=== PATIENT | male | born 1975 | race Caucasian/White ===

== ENCOUNTER 2016-10-30 22:55 | Emergency (ER) | payer OTHER ==
[2016-10-30] MEDS ORDERED: Sodium Chloride 0.9% 1000 ML 1,000 ML IV STA (23:31)
[2016-10-30] MEDS ORDERED: Sodium Chloride 0.9% 1000 ML 1,000 ML ONE (23:35)
--- NOTE | 2016-10-30 23:55 | ERPHSYRPT ---
- History of Present Illness Time Seen by Provider: 10/30/16 23:25 Historian: patient Patient Subjective Stated Complaint: pt states he has been having lower back pain x2 weeks and dark urine. states he thinks he has been dehydrated or may have kidney infection Triage Nursing Assessment: pt alert and oriented, asnwers questions approp. pt ambulatory with steady gait noted. respirations nonlabored with lungs cta. pt jaundiced, eyes and skin yellow. urine dark. abd soft, tender in epigastric area. bowel sounds present. Physician History: PATIENT COMPLAINS OF BILATERAL LOWER BACK PAIN FOR 2WEEKS, ASSOCIATED WITH EMESIS X 3 AFTER MEALS, AND RIGHT UPPER AND ABDOMINAL OVER THE PAST SEVERAL DAYS. STATES HE HAS BECAME JAUNDICE OVER PAST 3 DAYS. DENIES DIARRHEA OR FEVER Timing/Duration: week(s) Activities at Onset: none Quality: throbbing Severity of Pain-Max: moderate Severity of Pain-Current: moderate Previous symptoms: no prior history Allergies/Adverse Reactions: No Known Drug Allergies Allergy (Verified 10/30/16 23:32) Home Medications: No Home Meds 1 [facility] UD 10/30/16 [History] Hx Tetanus, Diphtheria Vaccination/Date Given: Yes Hx Influenza Vaccination/Date Given: No Hx Pneumococcal Vaccination/Date Given: No Immunizations Up to Date: Yes - Review of Systems Constitutional: Weakness, No Fever, No Chills Eyes: No Symptoms Ears, Nose, & Throat: No Symptoms Respiratory: No Cough, No Dyspnea Cardiac: No Chest Pain, No Edema, No Syncope Abdominal/Gastrointestinal: No Abdominal Pain, No Nausea, No Vomiting, No Diarrhea Genitourinary Symptoms: No Dysuria Musculoskeletal: No Back Pain, No Neck Pain Skin: No Rash Neurological: No Symptoms, No Dizziness, No Focal Weakness, No Sensory Changes Psychological: No Symptoms Endocrine: No Symptoms All Other Systems: Reviewed and Negative - Past Medical History Pertinent Past Medical History: Yes Other Medical History: hx of fx sternum - Past Surgical History Past Surgical History: Yes Other Surgical History: lt wrsit surgery - Social History Smoking Status: Former smoker Exposure to second hand smoke: Yes Drug Use: none Patient Lives Alone: No - Nursing Vital Signs Nursing Vital Signs: Initial Vital Signs Temperature 97.9 F 10/30/16 23:07 Pulse Rate 80 10/30/16 23:07 Respiratory Rate 20 10/30/16 23:07 Blood Pressure 142/89 10/30/16 23:07 O2 Sat by Pulse Oximetry 99 10/30/16 23:07 Pain Scale Pain Intensity [] 3 Pain Intensity 4 - Physical Exam General Appearance: no apparent distress, alert Eye Exam: PERRL/EOMI, eyes nml inspection, scleral icterus Ears, Nose, Throat Exam: normal ENT inspection, pharynx normal, moist mucous membranes Neck Exam: normal inspection, non-tender, supple, full range of motion Respiratory Exam: normal breath sounds, lungs clear, No respiratory distress Cardiovascular Exam: regular rate/rhythm, normal heart sounds Gastrointestinal/Abdomen Exam: soft, normal bowel sounds, tenderness ( EPIGASTRIC AND RIGHT AND RIGHT UPPER QUAD), No mass Back Exam: normal inspection, normal range of motion, No CVA tenderness, No vertebral tenderness Extremity Exam: normal inspection, normal range of motion, pelvis stable Neurologic Exam: alert, oriented x 3, cooperative, normal mood/affect, nml cerebellar function, sensation nml, No motor deficits Skin Exam: normal color, warm, dry SpO2: 99 Oxygen Delivery: Room Air - CT Exams Abdomen/Pelvis CT Interpretation: Tele-radiologist Report (THERE IS A RIM OF LOW DENSITY MEASURING 7MM, IN THICKNESS SURROUNDING THE ENHANCING MUCOSA OF THE SOMEWHAT CONTRACTED GALLBLADDER. THE COMMON HEPATIC DUCT MEASURE UP TO 6MM IN DIAMETER, THERE IS A 4MM NONOBSTRUCTING STONE IN THE LOWER POLE OF LFT KIDNEY) Ordered Tests: Active Orders 24 hr Category Date Time Status IV Insertion STAT Care 10/30/16 23:31 Active ABDOMEN AND PELVIS W CONTRAST [CT] Stat Exams 10/30/16 23:32 Taken AMYLASE Stat Lab 10/30/16 23:54 Completed CBC W DIFF Stat Lab 10/30/16 23:54 Completed CMP Stat Lab 10/30/16 23:54 Completed CULTURE,URINE Stat Lab 10/30/16 23:55 Received LIPASE Stat Lab 10/30/16 23:54 Completed PROTIME WITH INR Stat Lab 10/30/16 23:54 Completed UA W/ MICROSCOPIC Stat Lab 10/30/16 23:55 Completed Urine Triage Profile Stat Lab 10/30/16 23:55 Completed Medication Summary Generic Name Dose Route Start Last Admin Trade Name Freq PRN Reason Stop Dose Admin Sodium Chloride 1,000 mls @ 100 mls/hr 10/31/16 02:45 Sodium Chloride 0.9% 1000 Ml IV 11/30/16 02:44 .Q10H CORNELIO Discontinued Medications Generic Name Dose Route Start Last Admin Trade Name Mac PRN Reason Stop Dose Admin Fentanyl Citrate 100 mcg 10/31/16 02:33 10/31/16 02:37 Sublimaze 100 Mcg/2 Ml IV 10/31/16 02:34 100 mcg STAT ONE Administration Fentanyl Citrate Confirm 10/31/16 02:36 Sublimaze 100 Mcg/2 Ml Administered 10/31/16 02:37 Dose 100 mcg .ROUTE .STK-MED ONE Sodium Chloride Confirm 10/30/16 23:35 Sodium Chloride 0.9% 1000 Ml Administered 10/30/16 23:36 Dose 1,000 mls @ ud .ROUTE .STK-MED ONE Sodium Chloride 1,000 mls @ 999 mls/hr 10/30/16 23:31 10/31/16 00:00 Sodium Chloride 0.9% 1000 Ml IV 10/31/16 00:31 999 mls/hr .Q1H1M STA Administration Sodium Chloride Confirm 10/31/16 02:25 Sodium Chloride 0.9% 1000 Ml Administered 10/31/16 02:26 Dose 1,000 mls @ ud .ROUTE .STK-MED ONE Lactulose 20 g 10/31/16 02:35 Enulose 10 Gm/15 Ml PO 10/31/16 02:36 STAT ONE Lactulose Confirm 10/31/16 02:48 Lactulose 20 Gm/30ml Ud Cup Administered 10/31/16 02:49 Dose 20 gm .ROUTE .STK-MED ONE Ondansetron HCl 4 mg 10/31/16 02:33 10/31/16 02:37 Zofran 4 Mg/2 Ml Vial IV 10/31/16 02:34 4 mg STAT ONE Administration Ondansetron HCl Confirm 10/31/16 02:35 Zofran 4 Mg/2 Ml Vial Administered 10/31/16 02:36 Dose 4 mg .ROUTE .STK-MED ONE Ondansetron HCl 4 mg 10/31/16 02:38 Zofran 4 Mg/2 Ml Vial IV 10/31/16 02:39 STAT ONE Lab/Rad Data: Laboratory Result Diagrams 10/30/16 23:54 10/30/16 23:54 Laboratory Results 10/30/16 10/30/16 10/30/16 Range/Units 23:55 23:55 23:54 WBC (4.0-10.5) K/mm3 RBC (4.1-5.6) M/mm3 Hgb (12.5-18.0) gm/dl Hct (42-50) % MCV (78-100) fl MCH (26-32) pg MCHC (32-36) g/dl RDW (11.5-14.0) % Plt Count (150-450) K/mm3 MPV (6-9.5) fl Gran % (36.0-66.0) % Lymphocytes % (24.0-44.0) % Monocytes % (0.0-12.0) % Eosinophils % (0.00-5.0) % Basophils % (0.0-0.4) % Basophils # (0-0.4) INR (0.8-3.0) Sodium (136-145) mEq/L Potassium (3.5-5.1) mEq/L Chloride (98-107) mEq/L Carbon Dioxide (21-32) mEq/L Anion Gap (5-15) MEQ/L BUN (9-20) mg/dL Creatinine (0.55-1.30) mg/dl Estimated GFR ML/MIN Glucose (70-110) MG/DL Calcium (8.5-10.1) mg/dL Total Bilirubin (0.2-1.0) mg/dL AST (15-37) U/L ALT (12-78) U/L Alkaline Phosphatase (46-116) U/L Ammonia 32 (11-32) MMOL/l Serum Total Protein (6.4-8.2) gm/dL Albumin (3.4-5.0) g/dL Amylase (25-115) U/L Lipase (73-393) U/L Ur Collection Type VOID Urine Color DARK YELLOW (YELLOW) Urine Appearance SLIGHTLY CLOUDY (CLEAR) Urine pH 7.0 (5-6) Ur Specific Darling 1.025 (1.005-1.025) Urine Protein TRACE (Negative) Urine Ketones NEGATIVE (NEGATIVE) Urine Blood 50 (0-5) Hammad/ul Urine Nitrite NEGATIVE (NEGATIVE) Urine Bilirubin LARGE (NEGATIVE) Urine Urobilinogen 4 (0-1) mg/dL Ur Leukocyte Esterase NEGATIVE (NEGATIVE) Urine Microscopic RBC 2-5 (0-2) /HPF Urine Microscopic WBC 0-2 (0-5) /HPF Ur Epithelial Cells RARE (FEW) /HPF Amorphous Crystals MODERATE (NEGATIVE) /HPF Urine Bacteria MANY (NEGATIVE) /HPF Urine Glucose NEGATIVE (NEGATIVE) mg/dL Urine Opiates Level NEG. (NEGATIVE) Ur Methadone NEG. (NEGATIVE) Urine Barbiturates NEG. (NEGATIVE) Ur Phencyclidine (PCP) NEG. (NEGATIVE) Urine Amphetamine POS. (NEGATIVE) U Benzodiazepine Level NEG. (NEGATIVE) Urine Cocaine NEG. (NEGATIVE) Urine Marijuana (THC) NEG. (NEGATIVE) Specimen Received 10/31/16 0010 10/30/16 10/30/16 10/30/16 Range/Units 23:54 23:54 23:54 WBC 9.6 (4.0-10.5) K/mm3 RBC 4.86 (4.1-5.6) M/mm3 Hgb 14.6 (12.5-18.0) gm/dl Hct 41.0 L (42-50) % MCV 84.4 (78-100) fl MCH 30.0 (26-32) pg MCHC 35.6 (32-36) g/dl RDW 17.6 H (11.5-14.0) % Plt Count 148 L (150-450) K/mm3 MPV 12.1 H (6-9.5) fl Gran % 65.3 (36.0-66.0) % Lymphocytes % 19.0 L (24.0-44.0) % Monocytes % 11.3 (0.0-12.0) % Eosinophils % 3.9 (0.00-5.0) % Basophils % 0.5 (0.0-0.4) % Basophils # 0.05 (0-0.4) INR 1.04 (0.8-3.0) Sodium 139 (136-145) mEq/L Potassium 3.7 (3.5-5.1) mEq/L Chloride 101 (98-107) mEq/L Carbon Dioxide 30.3 (21-32) mEq/L Anion Gap 11.6 (5-15) MEQ/L BUN 12 (9-20) mg/dL Creatinine 0.96 (0.55-1.30) mg/dl Estimated GFR > 60 ML/MIN Glucose 107 (70-110) MG/DL Calcium 8.7 (8.5-10.1) mg/dL Total Bilirubin 13.00 H (0.2-1.0) mg/dL AST 1064 H (15-37) U/L ALT 1881 H (12-78) U/L Alkaline Phosphatase 356 H (46-116) U/L Ammonia (11-32) MMOL/l Serum Total Protein 6.6 (6.4-8.2) gm/dL Albumin 2.8 L (3.4-5.0) g/dL Amylase 49 (25-115) U/L Lipase 144 (73-393) U/L Ur Collection Type Urine Color (YELLOW) Urine Appearance (CLEAR) Urine pH (5-6) Ur Specific Darling (1.005-1.025) Urine Protein (Negative) Urine Ketones (NEGATIVE) Urine Blood (0-5) Hammad/ul Urine Nitrite (NEGATIVE) Urine Bilirubin (NEGATIVE) Urine Urobilinogen (0-1) mg/dL Ur Leukocyte Esterase (NEGATIVE) Urine Microscopic RBC (0-2) /HPF Urine Microscopic WBC (0-5) /HPF Ur Epithelial Cells (FEW) /HPF Amorphous Crystals (NEGATIVE) /HPF Urine Bacteria (NEGATIVE) /HPF Urine Glucose (NEGATIVE) mg/dL Urine Opiates Level (NEGATIVE) Ur Methadone (NEGATIVE) Urine Barbiturates (NEGATIVE) Ur Phencyclidine (PCP) (NEGATIVE) Urine Amphetamine (NEGATIVE) U Benzodiazepine Level (NEGATIVE) Urine Cocaine (NEGATIVE) Urine Marijuana (THC) (NEGATIVE) Specimen Received - Progress Progress Note: 10/31/16 02:55 PATIENT GIVEN IV FLUIDS, NORMAL SALINE 250ML/HR, ZOFRAN 4MG , FENTANYL 0.1MG IV Discussed with : Other (DISCUSSED WITH DR LARKIN AT 0245 ACCEPTS TRANSFER TO [facility]) - Departure Time of Disposition: 03:05 Departure Disposition: Transfer Clinical Impression: ACUTE HEPATIC ENCEPHALOPATHY Condition: Stable Critical Care Time: No Referrals: DOCTOR,NO FAMILY [Primary Care Provider] -
[2016-10-30 23:58] LABS: BASOPHIL % 0.5 % (0.0-0.4); Eosinophil % 3.9 % (0.00-5.0); Granulocytes % 65.3 % (36.0-66.0); Mean Cell Volume 84.4 fl (78-100); Mean Platelet Volume 12.1 fl (6-9.5); Monocytes % 11.3 % (0.0-12.0); Platelet Count 148 K/mm3 (150-450); Red Blood Count 4.86 M/mm3 (4.1-5.6); Red Cell Distribution Width 17.6 % (11.5-14.0); White Blood Count 9.6 K/mm3 (4.0-10.5)
[2016-10-31 00:16] LABS: INR 1.04 (0.8-3.0); PROTIME 11.7 SECONDS (8.83-12.87)
[2016-10-31 00:23] LABS: ALBUMIN 2.8 g/dL (3.4-5.0); ALKALINE PHOSPHATASE 356 U/L (46-116); ANION GAP 11.6 MEQ/L (5-15); BLOOD UREA NITROGEN 12 mg/dL (9-20); CHLORIDE 101 mEq/L (98-107); Carbon Dioxide 30.3 mEq/L (21-32); Glucose 107 MG/DL (70-110); LIPASE 144 U/L (73-393); Potassium 3.7 mEq/L (3.5-5.1); SODIUM 139 mEq/L (136-145); Total Protein 6.6 gm/dL (6.4-8.2)
[2016-10-31 00:28] LABS: SGOT/AST 1064 U/L (15-37); SGPT/ALT 1881 U/L (12-78)
[2016-10-31 00:35] LABS: ADD URINE CULTURE? YES (NO); Bacteria MANY /HPF (NEGATIVE); Bilirubin LARGE (NEGATIVE); Blood 50 Ery/ul (0-5); COMPLETE URINE MICROSCOPIC? YES; Collection Type VOID; Epithelial Cells RARE /HPF (FEW); Glucose NEGATIVE (NEGATIVE); Leukocyte Esterase NEGATIVE (NEGATIVE); WBC 0-2 /HPF (0-5)
[2016-10-31] MEDS ORDERED: Sodium Chloride 0.9% 1000 ML 1,000 ML ONE (02:25)
[2016-10-31] MEDS ORDERED: SUBLIMAZE 100 MCG/2 ML IV ONE (02:33)
[2016-10-31] MEDS ORDERED: Zofran 4 MG/2 ML VIAL IV ONE ×2 (02:33→02:38)
[2016-10-31 02:34] VITALS: BP 128/85; PULSE 67
[2016-10-31] MEDS ORDERED: Zofran 4 MG/2 ML VIAL ONE (02:35)
[2016-10-31] MEDS ORDERED: Enulose 10 GM/15 ML PO ONE (02:35)
[2016-10-31] MEDS ORDERED: SUBLIMAZE 100 MCG/2 ML ONE (02:36)
[2016-10-31 02:38] VITALS: O2SAT 99
[2016-10-31] MEDS ORDERED: Sodium Chloride 0.9% 1000 ML 1,000 ML IV SCH (02:45)
[2016-10-31] MEDS ORDERED: LACTULOSE 20 GM/30ML UD CUP ONE (02:48)
--- NOTE | 2016-10-31 09:49 | XRAY ---
Indication: Upper abdominal pain. Hematuria. Jaundice. Low back and bilateral hip pain. Multiple contiguous images obtained through the abdomen and pelvis using 80 cc Isovue 370 contrast only. Comparison: None Lung bases demonstrates mild bibasilar dependent atelectasis. The toposcan demonstrates nodularity in the peripheral right mid to lower lung. Heart is not enlarged. Stomach is markedly distended with food. Noncontrasted bowel loops appear nonobstructed. There is mild diffuse scattered colonic fecal debris. Minimal descending and sigmoid diverticulosis without diverticulitis. Normal appendix. No free fluid/air. Gallbladder is contracted with wall thickening/enhancement but no gallstones or biliary distention. Small pericholecystic fluid present. Cholecystitis is of primary concern. Liver is enlarged measuring 21 cm in greatest dimension. A few scattered hepatic cysts, largest in the inferior right lobe measuring 9 mm. There is a 1.2 x 1.8 cm periportal node (image 24, series 2). Smaller periaortic nodes, largest 0.9 x 1.5 cm. Nonobstructing 2 mm left lower renal micro-calculus and 9 mm right lower renal cortical cyst. Remaining spleen, adrenal glands, ureters, and bladder appear unremarkable. Minimal aortic calcifications without AAA. Osseous structures intact with bilateral L5 spondylolysis and minimal 2 mm spondylolisthesis. Impression: 1. Gallbladder contracted with abnormal wall thickening/enhancement and pericholecystic fluid. Rule out acalculous cholecystitis. 2. Mild fecal stasis without obstruction. Colonic diverticulosis without diverticulitis. 3. Nonspecific prominent periportal lymph node. Smaller periaortic nodes. 4. Nonobstructing left renal micro-calculus and a right renal cyst. 5. Hepatomegaly with small hepatic cysts. 6. Bilateral L5 spondylolysis with minimal grade 1 spondylolisthesis. 7. Right mid to lower lung nodularity on toposcan. Recommend chest x-ray or CT chest to further evaluate and characterize. Comment: Preliminary interpretation was made by [facility]. No discrepancy. CT DI 10.54
[2016-11-02 17:28] LABS: HEPATITIS B VIRUS CORE TOT AB Reactive (Non Reactive); Hepatitis B Surface Ab.Quant. <3.50 mIU/mL (0.00-8.49)
== END 2016-10-31 03:15 | disposition short-term general hospital (02) ==
LOC: ED 22:55
DX: K72.90 Hepatic failure, unspecified without coma (principal); R53.1 Weakness; M54.5 Low back pain; R10.11 Right upper quadrant pain
CPT/HCPCS: 36000; 36415; 74177; 80053; 80074; 80307; 81000; 81002; 82140; 82150; 83690; 85025; 85610; 87086; 96360; 96374; 96375; 99285; J2405; J3010; A9270-GY